=== PATIENT | female | born 1980 | race Hispanic/Latino ===

== ENCOUNTER 2021-02-13 20:54 | Inpatient (IN) | payer OTHER, SELFPAY ==
[2021-02-13] MEDS ORDERED: Pantoprazole 40 MG VIAL IVP SCH (23:45)
[2021-02-13] MEDS ORDERED: Acetaminophen 650 MG Suppository PR PRN (23:55)
[2021-02-14] MEDS ORDERED: hydrALAZINE 20 MG/ML VIAL SLOW IVP PRN (00:01)
[2021-02-14 01:34] LABS: #Basophils 0.1 thou/uL (0.0-0.2); #Lymphocytes 1.4 thou/uL (1.20-3.40); #Monocytes 0.9 thou/uL (0.11-0.59); #Neutrophils 6.6 thou/uL (1.40-6.50); %Basophils 0.7 % (0.0-1.0); %Eosinophils 0.5 % (0.0-10.0); %Lymphocytes 15.5 % (21.0-51.0); %Monocytes 9.7 % (0.0-10.0); %Neutrophils 73.6 % (42.0-75.0); Hemoglobin 7.2 g/dL (12.0-16.0); Mean Corpuscular HGB CONC 32.9 g/dL (32.0-36.0); Mean Corpuscular Volume 84.9 fL (78.0-98.0); Mean Platelet Volume 6.2 fL (7.4-10.4); Platelet Count 352 thou/uL (130-400); Red Blood Cell (RBC) Count 2.59 mill/uL (4.20-5.40)
[2021-02-14] MEDS: Morphine 4 MG/ML VIAL SLOW IVP PRN ×3 (01:41→15:47)
[2021-02-14] MEDS: Sodium Chloride 0.9% 1,000 ML IV SCH ×5 (01:55→21:38)
[2021-02-14] MEDS: Ondansetron PF 4 MG/2 ML Vial IVP PRN ×3 (03:11→20:23)
[2021-02-14] MEDS ORDERED: Fentanyl 100 MCG/2 ML VIAL SLOW IVP SCH ×2 (03:15→07:45)
[2021-02-14 04:28] LABS: #Basophils 0.1 thou/uL (0.0-0.2); #Eosinphils 0.1 thou/uL (0.0-0.7); #Lymphocytes 1.9 thou/uL (1.20-3.40); #Monocytes 0.8 thou/uL (0.11-0.59); #Neutrophils 6.6 thou/uL (1.40-6.50); %Basophils 0.6 % (0.0-1.0); %Eosinophils 1.3 % (0.0-10.0); %Lymphocytes 20.2 % (21.0-51.0); %Monocytes 8.2 % (0.0-10.0); %Neutrophils 69.6 % (42.0-75.0); Hemoglobin 7.6 g/dL (12.0-16.0); Mean Corpuscular HGB CONC 32.8 g/dL (32.0-36.0); Mean Corpuscular Hemoglobin 27.5 pg (27.0-31.0); Mean Corpuscular Volume 83.8 fL (78.0-98.0); Mean Platelet Volume 6.6 fL (7.4-10.4); Platelet Count 388 thou/uL (130-400); Red Blood Cell (RBC) Count 2.75 mill/uL (4.20-5.40); White Blood Cell (WBC) Count 9.5 thou/uL (4.8-10.8)
[2021-02-14 04:56] LABS: Iron 27 ug/dL (50-170); Iron Binding Capacity, Total 303 mcg/dL (265-497)
[2021-02-14 04:58] LABS: ALT (SGPT) 9 U/L (8-55); AST (SGOT) 12 U/L (5-34); Alkaline Phosphatase 65 U/L (40-110); Anion Gap 9 mmol/L (10-20); BUN (Urea Nitrogen) 24 mg/dL (7.0-18.7); Bilirubin, Total 0.2 mg/dL (0.2-1.2); Calc. Creatinine Clearance 69 mL/min (70-130); Calcium 8.2 mg/dL (7.8-10.44); Carbon Dioxide 28 mmol/L (22-29); Chloride 103 mmol/L (98-107); Globulin 2.8 g/dL (2.4-3.5); Glucose 96 mg/dL (70-105); Iron 28 ug/dL (50-170); Iron Binding Capacity, Total 311 mcg/dL (265-497); Potassium 3.8 mmol/L (3.5-5.1); Protein, Total 5.8 g/dL (6.0-8.3); Sodium 136 mmol/L (136-145)
[2021-02-14] MEDS ORDERED: Pantoprazole 40 MG VIAL IVP SCH (09:00)
[2021-02-14] MEDS ORDERED: diphenhydrAMINE 50 MG/ML VIAL IVP SCH ×2 (12:00→16:30)
[2021-02-14 12:54] LABS: SARS-CoV-2 PCR by NAA Not Detected (NotDetected)
[2021-02-14] MEDS: Fentanyl 100 MCG/2 ML VIAL SLOW IVP PRN (20:22)
[2021-02-14] MEDS: Pantoprazole 40 MG VIAL IVP SCH (21:37)
[2021-02-15] MEDS: Fentanyl 100 MCG/2 ML VIAL SLOW IVP PRN ×5 (00:18→20:29)
[2021-02-15] MEDS: Sodium Chloride 0.9% 1,000 ML IV SCH ×5 (01:51→22:00)
[2021-02-15] MEDS: Ondansetron PF 4 MG/2 ML Vial IVP PRN ×4 (04:52→20:29)
[2021-02-15 05:08] LABS: #Basophils 0.1 thou/uL (0.0-0.2); #Eosinphils 0.2 thou/uL (0.0-0.7); #Lymphocytes 1.2 thou/uL (1.20-3.40); #Monocytes 0.8 thou/uL (0.11-0.59); #Neutrophils 6.3 thou/uL (1.40-6.50); %Basophils 0.7 % (0.0-1.0); %Eosinophils 2.1 % (0.0-10.0); %Lymphocytes 13.7 % (21.0-51.0); %Neutrophils 74.5 % (42.0-75.0); Hemoglobin 6.4 g/dL (12.0-16.0); Mean Corpuscular HGB CONC 32.3 g/dL (32.0-36.0); Mean Corpuscular Hemoglobin 27.8 pg (27.0-31.0); Mean Corpuscular Volume 85.9 fL (78.0-98.0); Mean Platelet Volume 6.2 fL (7.4-10.4); Platelet Count 300 thou/uL (130-400); RBC Distribution Width 14.6 % (11.5-14.5); Red Blood Cell (RBC) Count 2.31 mill/uL (4.20-5.40); White Blood Cell (WBC) Count 8.4 thou/uL (4.8-10.8)
[2021-02-15 05:38] LABS: ALT (SGPT) 8 U/L (8-55); AST (SGOT) 11 U/L (5-34); Albumin 2.5 g/dL (3.5-5.0); Alkaline Phosphatase 55 U/L (40-110); Anion Gap 14 mmol/L (10-20); BUN (Urea Nitrogen) 12 mg/dL (7.0-18.7); Bilirubin, Total 0.2 mg/dL (0.2-1.2); Calc. Creatinine Clearance 93 mL/min (70-130); Calcium 7.3 mg/dL (7.8-10.44); Carbon Dioxide 14 mmol/L (22-29); Chloride 112 mmol/L (98-107); Globulin 2.3 g/dL (2.4-3.5); Glucose 67 mg/dL (70-105); Protein, Total 4.8 g/dL (6.0-8.3); Sodium 136 mmol/L (136-145)
[2021-02-15] MEDS: Pantoprazole 40 MG VIAL IVP SCH ×2 (09:16→20:30)
[2021-02-15] MEDS ORDERED: diphenhydrAMINE 50 MG/ML VIAL IVP SCH (10:45)
[2021-02-15] MEDS ORDERED: Acetaminophen 325 MG TAB PO SCH (10:45)
[2021-02-15] MEDS ORDERED: PROPOFOL 200 MG/20 ML VIAL ONE (13:07)
[2021-02-15] MEDS ORDERED: Succinylcholine 200 MG/10 ml SYRINGE FS ONE (13:07)
[2021-02-15] MEDS ORDERED: Lidocaine 1% PF 5 ML VIAL ONE (13:07)
[2021-02-15] MEDS ORDERED: Midazolam HCl 2 mg/2 ml Vial ONE (13:17)
[2021-02-15 16:31] LABS: Hemoglobin 7.8 g/dL (12.0-16.0)
[2021-02-16] MEDS: Fentanyl 100 MCG/2 ML VIAL SLOW IVP PRN ×5 (01:16→21:11)
[2021-02-16] MEDS: Ondansetron PF 4 MG/2 ML Vial IVP PRN ×3 (01:16→14:21)
[2021-02-16] MEDS: Sodium Chloride 0.9% 1,000 ML IV SCH ×2 (01:16→08:05)
[2021-02-16 05:44] LABS: #Basophils 0.1 thou/uL (0.0-0.2); #Eosinphils 0.2 thou/uL (0.0-0.7); #Lymphocytes 1.1 thou/uL (1.20-3.40); #Monocytes 0.6 thou/uL (0.11-0.59); #Neutrophils 7.2 thou/uL (1.40-6.50); %Basophils 0.5 % (0.0-1.0); %Eosinophils 2.3 % (0.0-10.0); %Lymphocytes 11.9 % (21.0-51.0); %Monocytes 6.7 % (0.0-10.0); %Neutrophils 78.5 % (42.0-75.0); Hemoglobin 8.2 g/dL (12.0-16.0); Mean Corpuscular Hemoglobin 28.8 pg (27.0-31.0); Mean Corpuscular Volume 87.3 fL (78.0-98.0); Mean Platelet Volume 5.9 fL (7.4-10.4); Platelet Count 287 thou/uL (130-400); RBC Distribution Width 15.4 % (11.5-14.5); Red Blood Cell (RBC) Count 2.83 mill/uL (4.20-5.40); White Blood Cell (WBC) Count 9.2 thou/uL (4.8-10.8)
[2021-02-16 06:09] LABS: ALT (SGPT) 7 U/L (8-55); AST (SGOT) 14 U/L (5-34); Albumin 2.6 g/dL (3.5-5.0); Alkaline Phosphatase 61 U/L (40-110); Anion Gap 12 mmol/L (10-20); BUN (Urea Nitrogen) 6 mg/dL (7.0-18.7); Bilirubin, Total 0.2 mg/dL (0.2-1.2); Calc. Creatinine Clearance 97 mL/min (70-130); Calcium 7.5 mg/dL (7.8-10.44); Carbon Dioxide 12 mmol/L (22-29); Chloride 116 mmol/L (98-107); Globulin 2.6 g/dL (2.4-3.5); Glucose 69 mg/dL (70-105); Potassium 4.1 mmol/L (3.5-5.1); Protein, Total 5.2 g/dL (6.0-8.3); Sodium 136 mmol/L (136-145)
[2021-02-16] MEDS ORDERED: Non-Formulary Item 1 EACH (Albuterol Sulfate [Albuterol Sulfate Hfa] 8.5 GM Hfa.Aer.Ad) INH SCH (07:15)
[2021-02-16] MEDS ORDERED: Albuterol 200 PUFF (6.7GM INHALER) INH PRN (07:24)
[2021-02-16] MEDS: Pantoprazole 40 MG VIAL IVP SCH ×2 (08:06→21:11)
[2021-02-16] MEDS ORDERED: Iron, Sodium Ferric Gluconate 125 MG in Sodium Chloride 0.9% 100 ML IVPB SCH (14:00)
[2021-02-16] MEDS: Fat Emulsion 250 ML IVPB SCH (17:32)
[2021-02-16] MEDS: Multivitamins, Adult 10 ML, TRACE ELEMENT CONCENTRATE 1 ML in D15W-AA 5% with Lytes 2,0... IV SCH (17:32)
[2021-02-16] MEDS ORDERED: Fat Emulsion 250 ML IVPB SCH (22:00)
[2021-02-17] MEDS: Ondansetron PF 4 MG/2 ML Vial IVP PRN ×4 (01:29→20:28)
[2021-02-17] MEDS: Fentanyl 100 MCG/2 ML VIAL SLOW IVP PRN ×4 (01:29→20:21)
[2021-02-17] MEDS: Sodium Chloride 0.9% 1,000 ML IV SCH (04:33)
[2021-02-17] MEDS: Pantoprazole 40 MG VIAL IVP SCH ×2 (08:29→20:21)
[2021-02-17] MEDS ORDERED: Iron, Sodium Ferric Gluconate 125 MG in Sodium Chloride 0.9% 250 ML 250 ML IVPB SCH (09:00)
[2021-02-17] MEDS ORDERED: Iron, Sodium Ferric Gluconate 125 MG in Sodium Chloride 0.9% 100 ML IVPB SCH (09:00)
[2021-02-17] MEDS: Iron, Sodium Ferric Gluconate 125 MG in Sodium Chloride 0.9% 250 ML 250 ML IVPB SCH (09:16)
[2021-02-17] MEDS: Multivitamins, Adult 10 ML, TRACE ELEMENT CONCENTRATE 1 ML in D15W-AA 5% with Lytes 2,0... IV SCH (15:31)
[2021-02-18] MEDS: Sodium Chloride 0.9% 1,000 ML IV SCH ×2 (05:11→19:25)
[2021-02-18] MEDS: Fentanyl 100 MCG/2 ML VIAL SLOW IVP PRN ×3 (08:22→20:38)
[2021-02-18] MEDS: Ondansetron PF 4 MG/2 ML Vial IVP PRN ×3 (08:22→21:33)
[2021-02-18] MEDS: Pantoprazole 40 MG VIAL IVP SCH ×2 (08:23→20:41)
[2021-02-18] MEDS: Iron, Sodium Ferric Gluconate 125 MG in Sodium Chloride 0.9% 250 ML 250 ML IVPB SCH (09:43)
[2021-02-18 10:03] VITALS: BMI 21.0
[2021-02-18] MEDS ORDERED: Multivitamins, Adult 10 ML, TRACE ELEMENT CONCENTRATE 1 ML in CLINIMIX E 5/20 2,000 ML IV SCH (14:00)
[2021-02-18] MEDS ORDERED: Multivitamins, Adult 10 ML, TRACE ELEMENT CONCENTRATE 1 ML in D15W-AA 5% with Lytes 2,0... IV SCH (14:00)
[2021-02-18] MEDS: Fat Emulsion 250 ML IVPB SCH (14:57)
[2021-02-19] MEDS: Fentanyl 100 MCG/2 ML VIAL SLOW IVP PRN ×4 (02:53→21:14)
[2021-02-19 06:18] LABS: #Basophils 0.1 thou/uL (0.0-0.2); #Eosinphils 0.5 thou/uL (0.0-0.7); #Lymphocytes 1.7 thou/uL (1.20-3.40); #Monocytes 0.8 thou/uL (0.11-0.59); #Neutrophils 3.9 thou/uL (1.40-6.50); %Eosinophils 7.3 % (0.0-10.0); %Lymphocytes 24.6 % (21.0-51.0); %Neutrophils 56.1 % (42.0-75.0); Hemoglobin 7.9 g/dL (12.0-16.0); Mean Corpuscular HGB CONC 33.7 g/dL (32.0-36.0); Mean Corpuscular Hemoglobin 29.3 pg (27.0-31.0); Mean Corpuscular Volume 86.8 fL (78.0-98.0); Mean Platelet Volume 6.2 fL (7.4-10.4); Platelet Count 281 thou/uL (130-400); RBC Distribution Width 16.9 % (11.5-14.5); Red Blood Cell (RBC) Count 2.68 mill/uL (4.20-5.40); White Blood Cell (WBC) Count 6.9 thou/uL (4.8-10.8)
[2021-02-19 06:49] LABS: ALT (SGPT) 8 U/L (8-55); AST (SGOT) 12 U/L (5-34); Albumin 2.7 g/dL (3.5-5.0); Alkaline Phosphatase 56 U/L (40-110); Anion Gap 9 mmol/L (10-20); BUN (Urea Nitrogen) 11 mg/dL (7.0-18.7); Bilirubin, Total Less than 0.2 mg/dL (0.2-1.2); Calc. Creatinine Clearance 94 mL/min (70-130); Carbon Dioxide 21 mmol/L (22-29); Chloride 110 mmol/L (98-107); Globulin 2.4 g/dL (2.4-3.5); Glucose 104 mg/dL (70-105); Protein, Total 5.1 g/dL (6.0-8.3); Sodium 136 mmol/L (136-145)
[2021-02-19] MEDS: Ondansetron PF 4 MG/2 ML Vial IVP PRN ×2 (08:45→21:17)
[2021-02-19] MEDS: Pantoprazole 40 MG VIAL IVP SCH ×2 (08:47→21:19)
[2021-02-19] MEDS: Sodium Chloride 0.9% 1,000 ML IV SCH ×2 (08:52→15:44)
[2021-02-20] MEDS: Ondansetron PF 4 MG/2 ML Vial IVP PRN (04:12)
[2021-02-20] MEDS: Fentanyl 100 MCG/2 ML VIAL SLOW IVP PRN ×3 (04:13→13:02)
[2021-02-20 06:14] LABS: #Basophils 0.1 thou/uL (0.0-0.2); #Eosinphils 0.6 thou/uL (0.0-0.7); #Lymphocytes 1.8 thou/uL (1.20-3.40); #Monocytes 0.7 thou/uL (0.11-0.59); #Neutrophils 2.9 thou/uL (1.40-6.50); %Basophils 1.7 % (0.0-1.0); %Eosinophils 9.3 % (0.0-10.0); %Lymphocytes 29.7 % (21.0-51.0); %Monocytes 11.4 % (0.0-10.0); %Neutrophils 48.1 % (42.0-75.0); Hemoglobin 7.7 g/dL (12.0-16.0); Mean Corpuscular HGB CONC 32.9 g/dL (32.0-36.0); Mean Corpuscular Hemoglobin 28.9 pg (27.0-31.0); Mean Corpuscular Volume 87.7 fL (78.0-98.0); Mean Platelet Volume 6.3 fL (7.4-10.4); Platelet Count 266 thou/uL (130-400); Red Blood Cell (RBC) Count 2.67 mill/uL (4.20-5.40); White Blood Cell (WBC) Count 6.1 thou/uL (4.8-10.8)
[2021-02-20 06:31] LABS: Anion Gap 7 mmol/L (10-20); BUN (Urea Nitrogen) 8 mg/dL (7.0-18.7); Calc. Creatinine Clearance 100 mL/min (70-130); Carbon Dioxide 26 mmol/L (22-29); Chloride 108 mmol/L (98-107); Glucose 98 mg/dL (70-105); Potassium 4.2 mmol/L (3.5-5.1); Sodium 137 mmol/L (136-145)
[2021-02-20] MEDS: Pantoprazole 40 MG VIAL IVP SCH (08:34)
[2021-02-20 08:41] VITALS: BP 120/80; TEMP 97.8
[2021-02-20] MEDS: Sodium Chloride 0.9% 1,000 ML IV SCH (11:35)
== END 2021-02-20 15:30 | disposition home or self-care (01) | DRG 384 ==
LOC: 2NO 20:54 → T4-A 02-16 15:30
PROVIDERS: ADMIT Internal Medicine; ATTEND Internal Medicine
PROC: 0D9670Z Drainage of Stomach with Drainage Device, Via Natural or Artificial Opening (ICD-10-PCS; 2021-02-13)
PROC: 0DB78ZX Excision of Stomach, Pylorus, Via Natural or Artificial Opening Endoscopic, Diagnostic (ICD-10-PCS; principal; 2021-02-14)
PROC: 30233N1 Transfusion of Nonautologous Red Blood Cells into Peripheral Vein, Percutaneous Approach (ICD-10-PCS; 2021-02-15)
PROC: 02HV33Z Insertion of Infusion Device into Superior Vena Cava, Percutaneous Approach (ICD-10-PCS; 2021-02-16)
PROC: 3E0436Z Introduction of Nutritional Substance into Central Vein, Percutaneous Approach (ICD-10-PCS; 2021-02-17)
DX: K26.9 Duodenal ulcer, unspecified as acute or chronic, without hemorrhage or perforation (principal); K31.1 Adult hypertrophic pyloric stenosis; D61.9 Aplastic anemia, unspecified; K50.90 Crohn's disease, unspecified, without complications; N17.9 Acute kidney failure, unspecified; E44.0 Moderate protein-calorie malnutrition; Z20.822 Contact with and (suspected) exposure to COVID-19; T39.395A Adverse effect of other nonsteroidal anti-inflammatory drugs [NSAID], initial encounter; I10 Essential (primary) hypertension; K25.9 Gastric ulcer, unspecified as acute or chronic, without hemorrhage or perforation; D50.8 Other iron deficiency anemias; K21.00 Gastro-esophageal reflux disease with esophagitis, without bleeding; Z68.21 Body mass index [BMI] 21.0-21.9, adult; Z79.1 Long term (current) use of non-steroidal anti-inflammatories (NSAID); Z88.5 Allergy status to narcotic agent; Z88.8 Allergy status to other drugs, medicaments and biological substances; Z90.49 Acquired absence of other specified parts of digestive tract; Z82.49 Family history of ischemic heart disease and other diseases of the circulatory system; Z79.899 Other long term (current) drug therapy
CPT/HCPCS: 36415; 36430; 71045; 74018; 80048; 80053; 82728; 83540; 83550; 85025; 86850; 86900; 86901; 88305; C9113; J1200; J1642; J2250; J2270; J2405; J2704; J2916; J3010; J3490; J7050; P9016; U0003; U0005